=== PATIENT | male | born 1965 | race Caucasian/White ===

== ENCOUNTER → 2016-11-20 | Outpatient (CLI) | payer BC ==
[~2016-11-20] MED LIST: AZIT250T81 PO; BENZ200C43 PO; GFN600TCR PO; METH4TAB27 PO; PRCD5U PO; PS30T PO; SULF1TAB35 PO
[2016-11-20 10:53] VITALS: BP 119/82
--- NOTE | 2016-11-20 10:53 | Urgent Care T Sheet Gen (E) ---
Intake General Temperature (Fahrenheit): 98.2 Pulse: 70 Blood Pressure Systolic: 119 Blood Pressure Diastolic: 82 Respirations: 18 SPO2: 97 Description of Symptoms Patient presents with intermittent illness over the past month. Notes nasal congestion, PND and productive cough. Cough is worse at night. Notes intermittent low grade fevers. Been taking Mucinex and Sudafed without lasting improvement. is currently being treated for similar symptoms. History of Present Illness Allergies: Coded Allergies: Penicillins (Unverified Allergy, Unknown, 10/06/15) Home Meds Active Scripts Azithromycin (Zithromax Z-Eduardo)6 Tab/Pkt [id number] Mg PO SEE INSTRUCTIONS #6 TAB Ref 0 Day One: Take 2 tablets by mouth Days Two-Five: Take 1 tablet by mouth Prov:TIFFANIE ESTRADA MD 10/06/15 Benzonatate 200 Mg [id number] Mg PO TID PRN COUGH #18 CAP Prov:TIFFANIE ESTRADA MD 10/06/15 Methylprednisolone (Medrol Dosepack)21 Tab/Pkt Aggrog42 Tab PO UD #1 PKT Prov:TIFFANIE ESTRADA MD 10/06/15 Reported Medications Guaifenesin (Mucinex)600 Mg Ntk172 Mg PO NEEDED 10/06/15 Pseudoephedrine HCl 30 Mg Jthytb77 Mg PO NEEDED 10/06/15 Respiratory Constitutional Symptoms: Fever Malaise EENTM: Nose Congestion Throat pain Respiratory: Cough Cardiovascular: No symptoms reported Gastrointestinal/Abdominal: No symptoms reported All Other Systems Reviewed Remaining Systems: All other systems reviewed with negative findings Past Egqswvw-Nuszxg-Vghubv Hx Patient's Social History Recent foreign travel: No Surgeries/Hospitalizations Hospitalization/Surgery Hx: No surgeries or hospitalizations Respiratory Respiratory History: None Cardiovascular Cardiovascular History: None Gastrointestinal GI/Endocrine History: None Diabetes Diabetes: No Psychosocial Behavior Disorders: None Physical Exam Physical Exam General Appearance: WD/WN No apparent distress Eyes, Ears, Nose, Throat Ex: TMs normal Pharyngeal erythema (cobblestone appearance with thick PND) Other (red, swollen nasal turbinates, R worse than L , with thick drainage) Neck Exam: SuppleNo Lymphadenopathy Respiratory Exam: Lungs clear Normal breath sounds Cardiovascular Exam: Regular rate, rhythm Departure Urgent Care Impression Impression: Primary Impression: Sinusitis Qualified Code: J01.00 - Acute maxillary sinusitis, unspecified Additional Impression: Cough Departure Disposition: 01 HOME OR SELF-CARE Condition: Stable Referrals: STEPAN MONTANO MD (PCP) Additional Instructions: I believe the patient's cough is due to PND as his lungs were clear. With his PCN allergy, I have started him on a Z-Pack, use as directed. I have also prescribed a medrol dose pack for inflammation and drainage. May DC the Sudafed. May continue the Mucinex as needed Rest. Fluids. No NSAIDs while on steroid Return as needed Patient understands DC instructions. All questions were answered. Scripts Methylprednisolone (Medrol Dosepack)21 Tab/Pkt Tablet6 Tab PO DAILY Inflammation #1 PKT Ref 0 Take 6 tabs po on day 1 then decrease by 1 tab daily until packet is gone. Prov:STEPHAN FULLER 11/20/16 Azithromycin (Zithromax Z-Eduardo)6 Tab/Pkt [id number] Mg PO SEE INSTRUCTIONS #6 TAB Ref 0 Day One: Take 2 tablets by mouth Days Two-Five: Take 1 tablet by mouth Prov:STEPHAN FULLER 11/20/16 End of report . STEPHAN FULLER Nov 20, 2016 10:53
== END ==
LOC: MHUC 10:35
PROVIDERS: ATTEND Physician Assistant
DX: J01.00 Acute maxillary sinusitis, unspecified (principal); R05 Cough
CPT/HCPCS: 99213

== ENCOUNTER 2016-12-08 10:56 | Emergency (ER) | payer BC ==
[~2016-12-08] VITALS: Ht 177.8 cm; Wt 93.0 kg
[2016-12-08 12:12] VITALS: BP 131/73
== END 2016-12-08 12:12 | disposition home or self-care (01) ==
LOC: ED 10:57
DX: J01.90 Acute sinusitis, unspecified (principal)
CPT/HCPCS: 99282; 99283

== ENCOUNTER 2017-03-26 06:44 | Day surgery (SDC) | payer BC ==
[~2017-03-26] VITALS: Ht 177.8 cm; Wt 95.0 kg
[~2017-03-26 06:44] MED LIST changes: +LACTATED RINGERS 1,000 ML IV SCH; +SODIUM CHLORIDE FLUSH 3 ML SYR IV PRN
[2017-03-26 07:11] VITALS: BP 135/84
[2017-03-26] MEDS ORDERED: REMIFENTANIL 1 MG (ULTIVA) VIAL IV ONE (08:00)
[2017-03-26] MEDS ORDERED: MIDAZOLAM 2 MG/2 ML (VERSED) VIAL ONE (08:00)
[2017-03-26] MEDS ORDERED: PROPOFOL 40 ML IV ONE (08:00)
[2017-03-26 08:57] VITALS: BP 143/86
[2017-03-26 09:17] VITALS: BP 134/82
--- NOTE | 2017-03-26 12:44 | OPERATIVE REPORT ---
DATE OF OPERATION: 03/26/2017 PRE-OPERATIVE DIAGNOSIS: Screening colonoscopy POST-OPERATIVE DIAGNOSIS: Normal colonoscopy OPERATIVE PROCEDURE: Total colonoscopy SURGEON: Pedro Luis Bailey MD ANESTHESIA: Monitored anesthesia care FINDINGS: 1. The bowel prep was excellent. 2. No neoplasia, angiodysplasia, diverticula, or inflammation were seen. INDICATION: The patient is a 52-year-old referred by Dr. Antolin Vasquez for colonoscopy screening. He has not had any significant bowel habit changes recently and his family history is negative for colorectal cancer. DESCRIPTION OF PROCEDURE: The patient was informed of the risks and benefits and agreed to proceed. He was placed in the left lateral decubitus position and was administered IV sedation. When properly sedated a rectal exam was performed, which was normal. The lighted endoscope was passed into the rectum and advanced along the colon to the cecum. The ileocecal valve and the appendiceal orifice were easily seen. The scope was slowly brought back through the ascending, transverse, descending, and sigmoid colon. No polyps or neoplasia were noted. The rectum appeared normal on regular view and retroflexion. The scope was removed completing the procedure. The patient tolerated the procedure without complications. With this normal colonoscopy, I recommend a repeat colonoscopy in 10 years.
== END 2017-03-26 09:24 ==
LOC: ASC 06:44
PROVIDERS: ATTEND Surgery
DX: Z12.11 Encounter for screening for malignant neoplasm of colon (principal)
CPT/HCPCS: 45378; J2250; J7120